=== PATIENT | female | born 1955 | race African-American/Black ===

== ENCOUNTER 2017-03-12 11:32 | Emergency (ER) | payer MEDICAID ==
[~2017-03-12] VITALS: Ht 170.2 cm; Wt 90.7 kg
[2017-03-12 11:32] VITALS: BP 181/112; PULSE 89; RESP 19; TEMP 97.8; O2SAT 99
[~2017-03-12 11:32] MED LIST: ALBU8.5H8 INH; ARIP10TA14 PO; ASA81 PO; ASM110 INH; CALC-226 PO; GABA-531 PO; GLUXR500 PO; HYDC.5% TP; HYDR-3698 PO; IBUP-1479 PO; LATA2.5D6 OP; LISI10TA5 PO; LOP600 PO; LORA10TA7 PO; NIAC1CAP PO; NITSL SL; OMEP20CA10 PO; POLY17PO4 PO; SENN-153 PO; TRAZ-126 PO; TRIA1CAP53 PO
--- NOTE | 2017-03-12 11:32 | NUR ---
BROUGHT BACK TO BED #7 AND TRIAGED. REPORT GIVEN TO SELMA/RUFUS
--- NOTE | 2017-03-12 11:37 | NUR ---
Pt states she has had "high blood pressure for last 3 days". Pt states BP 180/114 today before ER visit. Pt states she took lisinopril this morning. Pt currently denies blurry vision. Pt states having headache 05/05 since last . No other complaints noted. Addendum: 03/12/17 at 1423 by [email or web address] Pt denies SOB, AAO x 4
--- NOTE | 2017-03-12 11:38 | NUR ---
ER Dr. Hamilton at bedside examining patient.
[2017-03-12] MEDS ORDERED: IBUPROFEN 600 MG TABLET PO ONE (12:15)
[2017-03-12] MEDS ORDERED: cloNIDine HCL 0.1 MG TABLET PO ONE (12:15)
--- NOTE | 2017-03-12 13:30 | NUR ---
Pt BP reassessed. Pt in stable condition.
--- NOTE | 2017-03-12 13:43 | NUR ---
Patient given written and verbal discharge instructions and verbalizes understanding. ER MD discussed with patient the results and treatment provided. Patient in stable condition. ID arm band removed. Rx of HYDROCHLOROTHIAZIDE given. Patient educated on pain management and to follow up with PMD. Pain Scale 0. Opportunity for questions provided and answered.
[2017-03-12 14:22] VITALS: BP 157/97; PULSE 84; RESP 16; TEMP 98; O2SAT 99
== END 2017-03-12 13:43 | disposition home or self-care (01) ==
LOC: SED 11:32
DX: I10 Essential (primary) hypertension (principal); G44.209 Tension-type headache, unspecified, not intractable; E11.9 Type 2 diabetes mellitus without complications
CPT/HCPCS: 99283

== ENCOUNTER 2017-06-03 11:54 | Emergency (ER) | payer MEDICAID ==
[~2017-06-03] VITALS: Ht 167.6 cm; Wt 95.3 kg
[2017-06-03 11:55] VITALS: BP_SYST 170
[2017-06-03 16:15] VITALS: BP_SYST 170
== END 2017-06-03 16:15 | disposition home or self-care (01) ==
LOC: SED 11:54
DX: S00.93XA Contusion of unspecified part of head, initial encounter (principal); S70.02XA Contusion of left hip, initial encounter; S90.32XA Contusion of left foot, initial encounter; V09.9XXA Pedestrian injured in unspecified transport accident, initial encounter; Z88.5 Allergy status to narcotic agent; Z88.8 Allergy status to other drugs, medicaments and biological substances; Y93.89 Activity, other specified; Y92.89 Other specified places as the place of occurrence of the external cause; Y99.8 Other external cause status
CPT/HCPCS: 70450-TC; 72125-TC; 72170-TC; 73650-TC; 99284

== ENCOUNTER 2017-10-02 08:49 | Emergency (ER) | payer MEDICAID ==
[~2017-10-02] VITALS: Ht 165.1 cm; Wt 90.7 kg
[2017-10-02 08:56] VITALS: BP_SYST 142
[2017-10-02] MEDS ORDERED: HYDROcodone/ACETAMIN 7.5-325 MG TAB PO ONE (09:15)
[2017-10-02] MEDS ORDERED: IBUPROFEN 600 MG TABLET PO ONE (09:15)
[2017-10-02 09:42] LABS: BASOPHILS % (AUTO) 0.5 % (0.0-2.0); EOSINOPHILS # (AUTO) 0.2 K/uL (0.0-0.4); EOSINOPHILS % (AUTO) 3.3 % (0.0-4.0); HEMATOCRIT 46.2 % (36-48); HEMOGLOBIN 15.1 g/dL (12.0-16.0); LYMPHOCYTES # (AUTO) 1.9 K/uL (1.0-5.5); LYMPHOCYTES % (AUTO) 29.7 % (20.5-51.5); MEAN CORPUSCULAR HEMOGLOBIN 31 pg (27-31); MEAN CORPUSCULAR HGB CONC 33 % (32-36); MEAN CORPUSCULAR VOLUME 95 fL (79.0-98.0); MONOCYTES # (AUTO) 0.3 K/uL (0.0-1.0); NEUTROPHILS # (AUTO) 4.1 K/uL (1.8-7.7); NEUTROPHILS % (AUTO) 61.5 % (40.0-70.0); PLATELET COUNT (AUTO) 155 K/uL (130-430); RED BLOOD CELL COUNT(AUTO) 4.85 MIL/uL (4.2-6.2); RED CELL DISTRIBUTION WIDTH 12.2 % (9.0-15.0); WHITE BLOOD COUNT (AUTO) 6.5 K/uL (4.8-10.8)
[2017-10-02 09:59] LABS: CALCIUM 9.6 mg/dL (8.4-11.0); CREATININE 0.64 mg/dL (0.55-1.30); POTASSIUM 3.8 mmol/L (3.5-5.1)
[2017-10-02 10:01] LABS: ALBUMIN 4.1 g/dL (3.4-4.8); PROTHROMBIN TIME 10.6 SECS (9.5-12.5); TOTAL BILIRUBIN 0.2 mg/dL (0.0-1.0)
[2017-10-02 11:18] VITALS: BP_SYST 134
== END 2017-10-02 11:18 | disposition home or self-care (01) ==
LOC: SED 08:49
DX: E11.40 Type 2 diabetes mellitus with diabetic neuropathy, unspecified (principal); J45.909 Unspecified asthma, uncomplicated; I10 Essential (primary) hypertension; F41.9 Anxiety disorder, unspecified; F20.9 Schizophrenia, unspecified; Z88.5 Allergy status to narcotic agent; Z79.899 Other long term (current) drug therapy; Z88.8 Allergy status to other drugs, medicaments and biological substances
CPT/HCPCS: 36415; 80053; 85025; 85610-TC; 85730-TC; 99285

== ENCOUNTER 2017-12-19 12:06 | Inpatient (IN) | payer MEDICAID ==
[~2017-12-19] VITALS: Ht 162.6 cm; Wt 103.4 kg
[2017-12-19 12:44] VITALS: BP_SYST 164
[2017-12-19] MEDS ORDERED: MORPHINE 2 MG/ML INJ. SYRINGE IVP ONE (14:00)
[2017-12-19] MEDS ORDERED: ONDANSETRON HCL 4 MG/2 ML VIAL IVP ONE (14:00)
[2017-12-19 14:45] LABS: BASOPHILS % (AUTO) 0.5 % (0.0-2.0); EOSINOPHILS # (AUTO) 0.2 K/uL (0.0-0.4); EOSINOPHILS % (AUTO) 2.1 % (0.0-4.0); HEMATOCRIT 47.4 % (36-48); HEMOGLOBIN 15.8 g/dL (12.0-16.0); LYMPHOCYTES # (AUTO) 2.2 K/uL (1.0-5.5); LYMPHOCYTES % (AUTO) 22.2 % (20.5-51.5); MEAN CORPUSCULAR HEMOGLOBIN 31 pg (27-31); MEAN CORPUSCULAR HGB CONC 33 % (32-36); MEAN CORPUSCULAR VOLUME 94 fL (79.0-98.0); MONOCYTES # (AUTO) 0.4 K/uL (0.0-1.0); MONOCYTES % (AUTO) 4.3 % (1.7-9.3); NEUTROPHILS % (AUTO) 70.9 % (40.0-70.0); PLATELET COUNT (AUTO) 155 K/uL (130-430); RED BLOOD CELL COUNT(AUTO) 5.04 MIL/uL (4.2-6.2); RED CELL DISTRIBUTION WIDTH 11.8 % (9.0-15.0); WHITE BLOOD COUNT (AUTO) 9.8 K/uL (4.8-10.8)
[2017-12-19 15:00] LABS: CALCIUM 9.9 mg/dL (8.4-11.0); CREATININE 0.73 mg/dL (0.55-1.30); POTASSIUM 3.6 mmol/L (3.5-5.1)
[2017-12-19] MEDS ORDERED: ASPIRIN 325 MG TABLET PO ONE (15:00)
[2017-12-19 15:26] LABS: PROTHROMBIN TIME 10.6 SECS (9.5-12.5)
[2017-12-19] MEDS ORDERED: ZOLPIDEM TARTRATE 5 MG TABLET PO PRN (16:00)
[2017-12-19] MEDS ORDERED: HYDROCHLOROTHIAZIDE 25 MG TABLET (HCTZ) PO SCH (16:00)
[2017-12-19] MEDS ORDERED: ALBUTEROL MDI INHALATION 8 GM INH INH PRN (16:00)
[2017-12-19] MEDS ORDERED: METOPROLOL TARTRATE 25 MG TABLET PO SCH (16:00)
[2017-12-19] MEDS ORDERED: DOCUSATE SODIUM 100 MG CAPSULE PO PRN (16:00)
[2017-12-19] MEDS ORDERED: ACETAMINOPHEN 325 MG TABLET PO PRN (16:00)
[2017-12-19] MEDS ORDERED: MAGNESIUM SULFATE 50 ML IV PRN (16:00)
[2017-12-19] MEDS ORDERED: ONDANSETRON HCL 4 MG/2 ML VIAL IVP PRN (16:00)
[2017-12-19] MEDS ORDERED: LORazepam 2 MG/ML VIAL IVP PRN (16:00)
[2017-12-19] MEDS ORDERED: MUPIROCIN 2% TOPICAL OINTMENT 22 GM NS PRN (16:00)
[2017-12-19] MEDS ORDERED: POTASSIUM CHLORIDE 20 MEQ TAB.PRT.SR PO PRN (16:00)
[2017-12-19] MEDS ORDERED: MORPHINE 2 MG/ML INJ. SYRINGE IVP PRN ×2 (16:00)
[2017-12-19] MEDS ORDERED: METOPROLOL TARTRATE 25 MG TABLET PO ONE (16:00)
[2017-12-19] MEDS ORDERED: HYDROCHLOROTHIAZIDE 25 MG TABLET (HCTZ) PO ONE (16:00)
[2017-12-19] MEDS ORDERED: ALBMDI INH (16:36)
[2017-12-19] MEDS ORDERED: TRIA80OI TP (16:36)
[2017-12-19] MEDS ORDERED: NITSL SL (16:36)
[2017-12-19] MEDS ORDERED: HYDR25TA4 PO (16:36)
[2017-12-19] MEDS ORDERED: [UNRECOGNIZED DRUG - REMARK] BOTH EYES (16:36)
[2017-12-19] MEDS ORDERED: MOME13HF2 INH (16:36)
[2017-12-19] MEDS ORDERED: SINUS RINSE (16:36)
[2017-12-19] MEDS ORDERED: ACET-73 PO (16:36)
[2017-12-19] MEDS ORDERED: VERA80TA2 PO (16:36)
[2017-12-19] MEDS ORDERED: GABA-531 PO (16:36)
[2017-12-19] MEDS ORDERED: ROBAC PO (16:36)
[2017-12-19] MEDS ORDERED: LISI-600 PO (16:36)
[2017-12-19] MEDS ORDERED: HYDC2.5% TP (16:36)
[2017-12-19] MEDS ORDERED: NIZCR60 TP (16:36)
[2017-12-19] MEDS ORDERED: TRAZ300T11 PO (16:36)
[2017-12-19] MEDS ORDERED: FLUT16SP16 NS (16:36)
[2017-12-19] MEDS ORDERED: PRED20TA PO (16:36)
[2017-12-19] MEDS ORDERED: AZEL137S7 (16:36)
[2017-12-19] MEDS ORDERED: polyethylene glycol PO (16:36)
[2017-12-19] MEDS ORDERED: ALBUTEROL SULFATE 0.083% 2.5 MG/3 ML VIAL.NEB INH PRN (17:00)
[2017-12-19 17:03] VITALS: BP_SYST 160
[2017-12-19] MEDS: LEVOFLOXACIN 500 MG/D5W 100 ML IV SCH (17:29)
[2017-12-19 17:47] VITALS: BP_SYST 160
[2017-12-19 18:12] VITALS: BP_SYST 160
[2017-12-19 19:10] VITALS: BP_SYST 123
[2017-12-19] MEDS ORDERED: DEXTROSE 50% JECT 50 ML DISP.SYRIN IVP PRN (20:00)
[2017-12-19] MEDS ORDERED: INSULIN ASPART 100 UNITS/ML, 10 ML VIAL (NovoLOG) SUBCUT PRN (20:00)
[2017-12-19] MEDS ORDERED: cloNIDine HCL 0.1 MG TABLET PO PRN (20:00)
[2017-12-19] MEDS: GABAPENTIN 300 MG CAPSULE PO SCH (20:40)
[2017-12-19] MEDS: GEMFIBROZIL 600 MG TABLET (LOPID) PO SCH (20:40)
[2017-12-19] MEDS: LATANOPROST 2.5 ML DROPS (XALATAN) OP SCH (20:41)
[2017-12-19] MEDS: HEPARIN SODIUM,PORCINE 5000 UNITS/ML VIAL SUBCUT SCH (20:43)
[2017-12-19] MEDS: LISINOPRIL 10 MG TABLET (PRINIVIL) PO SCH (20:58)
[2017-12-20 00:22] VITALS: BP_SYST 123
[2017-12-20 07:30] LABS: CALCIUM 9.6 mg/dL (8.4-11.0); CREATININE 0.77 mg/dL (0.55-1.30)
[2017-12-20 08:47] VITALS: BP_SYST 121
[2017-12-20] MEDS: LISINOPRIL 10 MG TABLET (PRINIVIL) PO SCH ×2 (08:50→21:51)
[2017-12-20] MEDS: GEMFIBROZIL 600 MG TABLET (LOPID) PO SCH ×2 (08:50→21:50)
[2017-12-20] MEDS: METOPROLOL TARTRATE 25 MG TABLET PO SCH ×2 (08:51→21:54)
[2017-12-20] MEDS: GABAPENTIN 300 MG CAPSULE PO SCH ×2 (08:51→21:53)
[2017-12-20] MEDS: ASPIRIN 81 MG TAB.CHEW PO SCH (08:52)
[2017-12-20] MEDS: CALCIUM CARBONATE/VITAMIN D3 1 TAB TABLET PO SCH (08:52)
[2017-12-20] MEDS: ARIPiprazole 5 MG TAB PO SCH (08:52)
[2017-12-20] MEDS: SENNOSIDES 8.6 MG TABLET PO SCH (08:52)
[2017-12-20] MEDS: LORATADINE 10 MG TABLET PO SCH (08:52)
[2017-12-20] MEDS: POLYETHYLENE GLYCOL 3350, 17 GM/ POWD.PACK PO SCH (08:53)
[2017-12-20] MEDS: traZODone HCL 50 MG TABLET (DESYREL) PO SCH (08:53)
[2017-12-20] MEDS: HEPARIN SODIUM,PORCINE 5000 UNITS/ML VIAL SUBCUT SCH ×2 (08:57→22:06)
[2017-12-20] MEDS: HYDROCHLOROTHIAZIDE 25 MG TABLET (HCTZ) PO SCH (08:58)
[2017-12-20] MEDS ORDERED: LISINOPRIL 10 MG TABLET (PRINIVIL) PO SCH (09:00)
[2017-12-20] MEDS ORDERED: MOMETASONE FUROATE INH SCH (09:00)
[2017-12-20 09:34] LABS: BASOPHILS % (AUTO) 0.4 % (0.0-2.0); EOSINOPHILS # (AUTO) 0.2 K/uL (0.0-0.4); EOSINOPHILS % (AUTO) 2.7 % (0.0-4.0); HEMATOCRIT 48.7 % (36-48); HEMOGLOBIN 15.8 g/dL (12.0-16.0); LYMPHOCYTES # (AUTO) 1.9 K/uL (1.0-5.5); LYMPHOCYTES % (AUTO) 23.8 % (20.5-51.5); MEAN CORPUSCULAR HEMOGLOBIN 31 pg (27-31); MEAN CORPUSCULAR HGB CONC 33 % (32-36); MEAN CORPUSCULAR VOLUME 95 fL (79.0-98.0); MONOCYTES # (AUTO) 0.6 K/uL (0.0-1.0); MONOCYTES % (AUTO) 7.7 % (1.7-9.3); NEUTROPHILS # (AUTO) 5.1 K/uL (1.8-7.7); NEUTROPHILS % (AUTO) 65.4 % (40.0-70.0); PLATELET COUNT (AUTO) 156 K/uL (130-430); RED BLOOD CELL COUNT(AUTO) 5.14 MIL/uL (4.2-6.2); WHITE BLOOD COUNT (AUTO) 7.8 K/uL (4.8-10.8)
[2017-12-20] MEDS: FLUTICASONE FUROATE 100 MCG BLST.W.DEV INH SCH (10:35)
[2017-12-20 12:51] VITALS: BP_SYST 122
[2017-12-20] MEDS: LEVOFLOXACIN 500 MG/D5W 100 ML IV SCH (16:10)
[2017-12-20 16:12] VITALS: BP_SYST 115
[2017-12-20 19:05] VITALS: BP_SYST 105
[2017-12-20] MEDS: LATANOPROST 2.5 ML DROPS (XALATAN) OP SCH (21:59)
[2017-12-21 00:27] VITALS: BP_SYST 107
[2017-12-21 08:00] VITALS: BP_SYST 126
[2017-12-21 08:21] LABS: BASOPHILS % (AUTO) 0.6 % (0.0-2.0); EOSINOPHILS # (AUTO) 0.2 K/uL (0.0-0.4); EOSINOPHILS % (AUTO) 3.1 % (0.0-4.0); HEMATOCRIT 48.4 % (36-48); HEMOGLOBIN 15.9 g/dL (12.0-16.0); LYMPHOCYTES # (AUTO) 2.1 K/uL (1.0-5.5); LYMPHOCYTES % (AUTO) 31.1 % (20.5-51.5); MEAN CORPUSCULAR HEMOGLOBIN 31 pg (27-31); MEAN CORPUSCULAR HGB CONC 33 % (32-36); MEAN CORPUSCULAR VOLUME 96 fL (79.0-98.0); MONOCYTES # (AUTO) 0.4 K/uL (0.0-1.0); MONOCYTES % (AUTO) 6.8 % (1.7-9.3); NEUTROPHILS # (AUTO) 3.9 K/uL (1.8-7.7); NEUTROPHILS % (AUTO) 58.4 % (40.0-70.0); PLATELET COUNT (AUTO) 155 K/uL (130-430); RED BLOOD CELL COUNT(AUTO) 5.07 MIL/uL (4.2-6.2); RED CELL DISTRIBUTION WIDTH 12.1 % (9.0-15.0); WHITE BLOOD COUNT (AUTO) 6.6 K/uL (4.8-10.8)
[2017-12-21] MEDS ORDERED: LISI-600 PO (08:24)
[2017-12-21 08:49] LABS: CALCIUM 9.9 mg/dL (8.4-11.0); CREATININE 0.79 mg/dL (0.55-1.30); POTASSIUM 3.7 mmol/L (3.5-5.1)
[2017-12-21 08:56] VITALS: BP_SYST 108
[2017-12-21] MEDS: ASPIRIN 81 MG TAB.CHEW PO SCH (09:20)
[2017-12-21] MEDS: GABAPENTIN 300 MG CAPSULE PO SCH (09:20)
[2017-12-21] MEDS: ARIPiprazole 5 MG TAB PO SCH (09:22)
[2017-12-21] MEDS: HYDROCHLOROTHIAZIDE 25 MG TABLET (HCTZ) PO SCH (09:23)
[2017-12-21] MEDS: LORATADINE 10 MG TABLET PO SCH (09:24)
[2017-12-21] MEDS: traZODone HCL 50 MG TABLET (DESYREL) PO SCH (09:24)
[2017-12-21] MEDS: CALCIUM CARBONATE/VITAMIN D3 1 TAB TABLET PO SCH (09:24)
[2017-12-21] MEDS: METOPROLOL TARTRATE 25 MG TABLET PO SCH (09:26)
[2017-12-21] MEDS: HEPARIN SODIUM,PORCINE 5000 UNITS/ML VIAL SUBCUT SCH (09:28)
[2017-12-21] MEDS: GEMFIBROZIL 600 MG TABLET (LOPID) PO SCH (09:28)
[2017-12-21] MEDS: LISINOPRIL 10 MG TABLET (PRINIVIL) PO SCH (09:29)
[2017-12-21] MEDS: POLYETHYLENE GLYCOL 3350, 17 GM/ POWD.PACK PO SCH (09:30)
[2017-12-21] MEDS: FLUTICASONE FUROATE 100 MCG BLST.W.DEV INH SCH (09:32)
[2017-12-21] MEDS: SENNOSIDES 8.6 MG TABLET PO SCH (09:53)
[2017-12-21 11:33] VITALS: BP_SYST 99
== END 2017-12-21 12:00 | disposition home or self-care (01) | DRG 47 ==
LOC: SED 12:06 → STU 15:50
PROVIDERS: ADMIT General Practice; ATTEND General Practice
DX: G45.9 Transient cerebral ischemic attack, unspecified (principal); E11.42 Type 2 diabetes mellitus with diabetic polyneuropathy; I10 Essential (primary) hypertension; G81.94 Hemiplegia, unspecified affecting left nondominant side; E78.5 Hyperlipidemia, unspecified; E66.9 Obesity, unspecified; F39 Unspecified mood [affective] disorder; G90.9 Disorder of the autonomic nervous system, unspecified; Z79.899 Other long term (current) drug therapy; Z86.73 Personal history of transient ischemic attack (TIA), and cerebral infarction without residual deficits; Z87.891 Personal history of nicotine dependence; Z90.49 Acquired absence of other specified parts of digestive tract; Z68.39 Body mass index [BMI] 39.0-39.9, adult; Z90.710 Acquired absence of both cervix and uterus; Z88.5 Allergy status to narcotic agent; Z88.8 Allergy status to other drugs, medicaments and biological substances; Z91.041 Radiographic dye allergy status
CPT/HCPCS: 36415; 70450-TC; 71045; 80048; 82962; 83036; 83735-TC; 84484; 85025; 85610-TC; 85730-TC; 93005; 96374; 96375; 99285; J1644; J1956; J2270; J2405

== ENCOUNTER 2018-11-22 09:03 | Emergency (ER) | payer MEDICAID ==
[~2018-11-22] VITALS: Ht 170.2 cm; Wt 90.7 kg
[2018-11-22 09:03] VITALS: BP_SYST 141
[~2018-11-22 09:03] MED LIST changes: +ACET-73 PO; +ALBMDI INH; -ARIP10TA14 PO; +ARIP10TA9 PO; +AZEL137S7; -CALC-226 PO; +CALC-823 PO; +FLUT16SP16 NS; +HYDC2.5% TP; +HYDR25TA4 PO; -IBUP-1479 PO; +KETO60CR2 TP; -LATA2.5D6 OP; +LISI-600 PO; -LISI10TA5 PO; +MOME13HF2 INH; +PRED20TA PO; +ROBAC PO; +SINUS RINSE; -TRAZ-126 PO; +TRAZ-219 PO; +TRAZ300T11 PO; +TRIA80OI TP; +VERA80TA2 PO; +XALEYE OP; +[UNRECOGNIZED DRUG - REMARK] BOTH EYES; +polyethylene glycol PO
[2018-11-22] MEDS ORDERED: KETOROLAC TROMETHAMINE 60 MG/2 ML VIAL IM ONE (09:30)
[2018-11-22 10:32] VITALS: BP_SYST 138
== END 2018-11-22 10:32 | disposition home or self-care (01) ==
LOC: SED 09:03
DX: M25.561 Pain in right knee (principal); J45.909 Unspecified asthma, uncomplicated; E11.9 Type 2 diabetes mellitus without complications; I10 Essential (primary) hypertension; M19.90 Unspecified osteoarthritis, unspecified site; F20.9 Schizophrenia, unspecified; Z90.49 Acquired absence of other specified parts of digestive tract; Z90.710 Acquired absence of both cervix and uterus; Z79.899 Other long term (current) drug therapy; Z79.82 Long term (current) use of aspirin; Z88.5 Allergy status to narcotic agent; Z88.8 Allergy status to other drugs, medicaments and biological substances
CPT/HCPCS: 96372; 99283; J1885